=== PATIENT | male | born 1945 | race Caucasian/White ===

== ENCOUNTER 2018-01-08 12:43 | Inpatient (IN) | payer OTHER ==
[~2018-01-08] VITALS: Ht 172.7 cm; Wt 91.8 kg
--- NOTE | 2018-01-08 13:12 | ED CARDIAC/CP/PALPITATIONS ---
History of Present Illness General Chief Complaint: Palpitations Stated Complaint: PALPITATIONS Source: patient Exam Limitations: no limitations Allergies Coded Allergies: codeine (UPSET STOMACH 01/08/18) Triage Note: PT TO ED C/O HEART PALPITATIONS SINCE 0300. C/O FEELING WEAK. DENIES C/P, DIFF BREATHING, SOB, PAIN. DENIES H/O SAME. Triage Nurses Notes Reviewed? yes HPI: Patient is a 72-year-old male with a past medical history of hypertension, hyperlipidemia, diabetes mellitus type 2 is presenting to the emergency department with palpitations. Patient states he woke up at 0300 this morning and he felt palpitations, when he checked his pulse it was irregular and upon checking his blood pressure at home his systolic blood pressure was found to be in the 130s. Patient endorses a history of having for vodka drinks last night at a dinner constitution party. Says that patient has been feeling pretty normal, states he has lightheadedness which is secondary to his chronic vertigo, denies chest pain , palpitations, abdominal pain, constipation, diarrhea, vision changes, sweating. (True Henry MD) Vital Signs & Intake/Output Vital Signs & Intake/Output Vital Signs Date Time Temp Pulse Resp B/P B/P Pulse O2 O2 Flow FiO2 Mean Ox Delivery Rate 01/08 1446 98 14 127/79 01/08 1309 95 Room Air 01/08 1309 114 16 121/82 95 Room Air 01/08 1248 97.0 135 20 132/91 96 Room Air (Moira SOL,Dustin Nagy) Past History Travel History Traveled to [place] past 21 day No Medical History Any Pertinent Medical History? see below for history EENT: allergies Cardiovascular: hypertension, hyperlipidemia Renal: benign prost hyperplasia Endocrine: diabetes Surgical History Surgical History: non-contributory Psychosocial History What is your primary language Hungarian Tobacco Use: Quit >30 days ago ETOH Use: denies use Illicit Drug Use: denies illicit drug use Family History Hx Contributory? No (True Henry MD) Review of Systems Review of Systems Constitutional: Reports: see HPI. (True Henry MD) Physical Exam Physical Exam General Appearance: well developed/nourished, no apparent distress Head: atraumatic Neck: normal inspection, no midline tenderness, thyromegaly not appreciated Respiratory: normal breath sounds, lungs clear Cardiovascular: irregularly irregular, no murmur's appreciated Peripheral Pulses: 4+ dorsalis pedis (R), 4+ dorsalis pedis (L) Gastrointestinal: normal bowel sounds, soft, non-tender Extremities: normal inspection, normal capillary refill Neurologic/Psych: no motor/sensory deficits, awake, alert, oriented x 3, senior linux engineer II- XII nml as tested Skin: normal color, warm/dry Core Measures ACS in differential dx? No CVA/TIA Diagnosis No Sepsis Present: No Sepsis Focused Exam Completed? No CHADS2: CHADS2: Response Value Hypertension History yes 1 Diabetes Mellitus History yes 1 Total 2 (Carl SOL,True) Progress Differential Diagnosis: atrial fibrillation Initial ED EKG: AFIB Prior EKG: changed Comments: Patient is experiencing new onset atrial fibrillation, patient was discussed with marker hand on-call doctor Nusrat at 1404 who recommends bolusing with amiodarone 150 mg for pharmacological conversion to normal sinus rhythm and starting patient on IV heparin drip for transesophageal cardioversion if needed. Fecal Occult is negative in ED. CHADsVASc=3 (Carl SOL,True) Plan of Care: Orders Procedure Date/time Status MAGNESIUM 01/08 1344 Active THYROID STIMULATING HORMONE 01/08 1306 Complete FREE T4 01/08 1306 Complete TROPONIN LEVEL 01/08 1304 Complete PARTIAL THROMBOPLASTIN TIME 01/08 1304 Complete PROTHROMBIN TIME 01/08 1304 Complete COMPREHENSIVE METABOLIC PANEL 01/08 1304 Complete CBC WITHOUT DIFFERENTIAL 01/08 1304 Complete EKG 01/08 1244 Active Current Medications Sig/Kiki Start time Last Medication Dose Stop Time Status Admin Sodium Chloride 1,000 ML BOLUS ONE 01/08 1415 AC 01/08 (Normal Saline 0.9%) 01/08 1514 1446 Laboratory Tests 01/08/18 1306: Anion Gap 12, Estimated GFR 54 L, BUN/Creatinine Ratio 16.2, Glucose 186 H, Calcium 9.4, Total Bilirubin 0.4, AST 23, ALT 39, Alkaline Phosphatase 71, Troponin I < 0.01, Total Protein 6.6, Albumin 4.1, Globulin 2.5, Albumin/ Globulin Ratio 1.6, TSH 4.340 H, Free T4 1.02, PT 11.9, INR 1.09, APTT 33, CBC w Diff NO MAN DIFF REQ, RBC 5.30, MCV 87.8, MCH 28.7, MCHC 32.7 L, RDW 14.1, MPV 7.8, Gran % 62.6, Lymphocytes % 27.7, Monocytes % 5.5, Eosinophils % 3.9, Basophils % 0.3, Absolute Granulocytes 4.4, Absolute Lymphocytes 1.9, Absolute Monocytes 0.4, Absolute Eosinophils 0.3, Absolute Basophils 0 (Dustin Pizarro MD) Departure Departure Disposition: STILL A PATIENT Condition: Stable Clinical Impression Primary Impression: Atrial fibrillation Qualifiers: Atrial fibrillation type: unspecified Qualified Code: I48.91 - Unspecified atrial fibrillation Referrals: Sherri Stevens MD (PCP/Family) Departure Forms: Customer Survey General Discharge Information Admission Note Spoke With: Thien Ellison MD Documentation of Exam: Documentation of any treatments & extenuating circumstances including Concerns Regarding Discharge (functional status, medication knowledge or non-compliance, living conditions, etc.) that warrant an admission rather than observation: Patient has new onset atrial fibrillation will require IV medication for rhythm control Patient requires IV heparin drip to fully anticoagulate for electrocardioversion For new onset atrial fibrillation patient will require continuous cardiac monitoring (True Henry MD) Resident Co-Sign Statement Statement: ED Attending supervision documentation- [X] I saw and evaluated the patient. I have also reviewed all the pertinent lab results and diagnostic results. I agree with the findings and the plan of care as documented in the Resident's documentation. [] I have reviewed the ED Record and agree with the Resident's documentation. [] Additions or exceptions (if any) to the Resident's note and plan are summarized below: [] (Dustin Pizarro MD) Critical Care Note Critical Care Note Critical Care Time: non-applicable (True Henry MD)
[2018-01-08 13:40] LABS: ABSOLUTE BASOPHIL COUNT 0 /CUMM (0.0-0.2); ABSOLUTE EOSINOPHIL COUNT 0.3 /CUMM (0.0-0.7); ABSOLUTE GRANULOCYTE CT 4.4 /CUMM (1.4-6.5); ABSOLUTE LYMPH COUNT 1.9 /CUMM (1.2-3.4); ABSOLUTE MONOCYTE COUNT 0.4 /CUMM (0.10-0.60); BASOPHIL % 0.3 % (0.0-2.0); EOSINOPHIL % 3.9 % (0-5); GRANULOCYTE % 62.6 % (42.2-75.2); HEMATOCRIT 46.5 % (42-52); MEAN CORPUSCULAR HGB 28.7 PG (27.0-31.0); MEAN CORPUSCULAR HGB CONC 32.7 G/DL (33.0-37.0); MEAN CORPUSCULAR VOLUME 87.8 FL (80.0-94.0); MEAN PLATELET VOLUME 7.8 FL (7.4-10.4); RBC DISTRIBUTION WIDTH 14.1 % (11.5-14.5)
[2018-01-08 13:41] LABS: PT 11.9 SEC (9.4-12.5); PTT 33 SEC (25-37)
[2018-01-08 13:53] LABS: PLATELET COUNT 118 /CUMM (130-400)
--- NOTE | 2018-01-08 14:59 | History & Physical ---
Kristin Forde 01/08/18 1459: General Information and HPI History of Present Illness: Fareed Hardin is a 72-year-old male with a PMHx. hypertension, type 2 diabetes x 5 years, hyperlipidemia, obesity, anxiety, depression, obstructive sleep apnea on CPAP, and BPH who presents to the emergency department today with complaints of "palpitations." Patient states that around 3 A.M this morning he woke up with a certain sensation in his chest that felt like palpitations. Patient states it had come on suddenly and has been persisting until now. Patient states he had not experienced any symptom like that previously. Patient states he was drinking vodka last night, about 4 drinks. Patient denied any recent sick contacts, hospitalizations, or history of blood thinner usage. Patient denied experiencing any chest pain, shortness of breath, n/v, lightheadedness, dizziness, diaphoresis, fevers, chills, abdominal pain, weakness, and fatigue. Patient lives at home with his girlfriend. Patient states he is a former smoker who quite more than 50 years ago. Patient drinks alcohol occasionally, usually twice weekly. Patient otherwise denies any illict drug usage. Patient follows Dr. Stevens (PCP), Dr. Connor (Pulmonology), Dr. Wolf (Surgery), and Dr. Hartmann. Patient does not follow a branch specialist. Allergies/Medications Allergies: Coded Allergies: codeine (UPSET STOMACH 01/08/18) Past History Travel History Traveled to [place] past 21 day No Medical History EENT: allergies Cardiovascular: hypertension, hyperlipidemia Renal: benign prost hyperplasia Endocrine: diabetes Surgical History Surgical History: non-contributory Past Family/Social History Psychosocial History Where do you live? Home ETOH Use: denies use Illicit Drug Use: denies illicit drug use Review of Systems Review of Systems Constitutional: Denies: chills, fever, malaise, weakness. Cardiovascular: Reports: palpitations. Denies: chest pain, edema, orthopena, peripheral edema. Respiratory: Denies: cough, orthopnea, short of breath, sputum production. GI: Denies: abdominal pain, constipation, diarrhea, nausea, vomiting. Genitourinary: Denies: dysuria. Musculoskeletal: Denies: joint pain. Skin: Denies: no symptoms. Exam & Diagnostic Data Last 24 Hrs of Vital Signs/I&O Vital Signs Date Time Temp Pulse Resp B/P B/P Pulse O2 O2 Flow FiO2 Mean Ox Delivery Rate 01/08 1642 98.1 100 17 142/82 96 Room Air 01/08 1545 98.3 119 14 137/84 98 Room Air 01/08 1446 98 14 127/79 01/08 1309 95 Room Air 01/08 1309 114 16 121/82 95 Room Air 01/08 1248 97.0 135 20 132/91 96 Room Air Intake & Output 01/08 1600 01/08 0800 01/08 0000 Intake Total Output Total Balance Patient 210 lb Weight Weight Reported by Patient Measurement Method Physical Exam General Appearance Alert, Oriented X3, Cooperative, No Acute Distress Skin No Rashes, No Breakdown Skin Temp/Moisture Exam: Warm/Dry HEENT Atraumatic Neck Supple, No JVD Cardiovascular Normal S1, Normal S2, tachycardia Lungs Clear to Auscultation Abdomen Soft, No Tenderness Neurological Normal Speech, tremor in right hand; trigger finger in left hand Extremities No Edema, Normal Pulses Assessment/Plan Assessment: Fareed Hardin is a 72-year-old male with a PMHx. hypertension, type 2 diabetes x 5 years, hyperlipidemia, obesity, anxiety, depression, obstructive sleep apnea on CPAP, and BPH who presents to the emergency department today with complaints of "palpitations." Patient given NS 1 L bolus, Heparin 25,000 Units IV, and Amiodarone 150 mg IV once in the emergency department. Labs on Admission: WBC 7.0; H/H 15.2/46.5; Na 142; K+ 4.3; BUN 21 Cr. 1.3; TSH 4.34; Free T4 1.02 Patient admitted to the telemetry floor for the following reasons: #Atrial Fibrillation, acute, new-onset - Admitted to the telemetry floor for monitoring of vitals - Patient received Amiodarone bolus 150 mg in the ED; continuing with Amiodarone 360 mg IV Q12h - [id number] of 3; according to recent onset of symptoms will benefit from Amiodarone - ECHO, follow up - Serial EKG and Troponins - Cardiology consulted #Diabetes Mellitus - Insulin Sliding Scale, Novolog Aspart - AccuChecks - Consistent Carb 2 Diet #MIRANDA, likely due to dehydration -Cr 1.3 on admission; baseline 1.0 -follow up BEP in AM Code Status - FC DVT PPx. As Ranked By This Provider Problem List: 1. Atrial fibrillation Qualifiers Atrial fibrillation type: unspecified Qualified Code: I48.91 - Unspecified atrial fibrillation Core Measures/Misc (01/09) Acute Coronary Syndrome ACS Diagnosis: No Congestive Heart Failure Congestive Heart Failure Diagnosis No Cerebrovascular Accident CVA/TIA Diagnosis: No VTE (View Protocol) VTE Risk Factors Acute Medical Illness No Mechanical VTE Prophylaxis d/t N/A MechProphylax Ordered No VTE Pharm Prophylaxis d/t NA PharmProphylax ordered Sepsis (View protocol) Sepsis Present: No If YES complete Sepsis Event Note If YES complete Sepsis Event Note Kamlesh SOL,Rony 01/08/18 1526: General Information and HPI Allergies/Medications Home Med list Cholecalciferol (Vitamin D3) (Vitamin D) 1,000 UNIT TABLET 1 TAB PO DAILY VITAMIN (Reported) Doxazosin Mesylate 8 MG TABLET 1 TAB PO QPM BPH (Reported) Finasteride 5 MG TABLET 1 TAB PO DAILY BPH (Reported) Glimepiride 2 MG TABLET 1 TAB PO BID DIABETES (Reported) Levocetirizine Dihydrochloride 5 MG TABLET 1 TAB PO DAILY ALLERGIES (Reported ) Lisinopril (Prinivil) 10 MG TABLET 1 TAB PO DAILY BP (Reported) Metformin HCl 1,000 MG TABLET 1 TAB PO BID DIABETES (Reported) Omeprazole Magnesium 20 MG CAPSULE.DR 40 MG PO DAILY ACID (Reported) Vitamin E 400 UNIT CAPSULE 800 IU PO DAILY VITAMIN (Reported) Exam & Diagnostic Data Last 24 Hrs of Vital Signs/I&O Vital Signs Date Time Temp Pulse Resp B/P B/P Pulse O2 O2 Flow FiO2 Mean Ox Delivery Rate 01/08 1446 98 14 127/79 01/08 1309 95 Room Air 01/08 1309 114 16 121/82 95 Room Air 01/08 1248 97.0 135 20 132/91 96 Room Air Intake & Output 01/08 1600 01/08 0800 01/08 0000 Intake Total Output Total Balance Patient 95.254 kg Weight Weight Reported by Patient Measurement Method Core Measures/Misc (01/09) Sepsis (View protocol) If YES complete Sepsis Event Note If YES complete Sepsis Event Note Resident Review Statement Resident Statement: examined this patient, discussed with director internal communications, amended to note Other Findings: 72-year-old gentleman with a past medical history of hypertension, hyperlipidemia, diabetes mellitus type 2 is presenting to the emergency department with less than 24 hr hx of palpitation, reported irregular rythm, in the context of EKG findings consistent with atriial fibrillation. Impression * New onset a fib. [id number] score of 3 warranting anticoagulation. Based on onset of symptoms, his afib is new and less than 24hr and therefore can be approached with rythm control. * Hx of chronic diseases: HTN, HLD,diabetes Plan Admit to Tele monitoring for close cardiac monitoring Continue heparin gtts Amiodarone for rythm control Echocardiogram to assess for valvular pathologies Trend tropononin x2 and EKG Obtain Mag levels Keep mag above 2 and KCL above 4 Carbohydrate diet Accucheck tid DVT: Heparin code status:Thien Schultz 01/08/18 1549: Core Measures/Misc (01/09) Sepsis (View protocol) If YES complete Sepsis Event Note If YES complete Sepsis Event Note Attending MD Review Statement Attending Statement Attending MD Statement: examined this patient, discuss w/resident/PA/PLATFORM WORKER, agreed w/resident/PA/PLATFORM WORKER, discussed with family, reviewed EMR data (avail), discussed with nursing, discussed with case mgmt, reviewed images, amended to note Attending Assessment/Plan: Agree with above. Cardiology consulted in ER and recommend amiodarone drip for new onset afib and iv heparin for anticoagulation. Obtain serial cardiac enzymes and rule out SC. ECHO. Telemetry monitoring. Follow cardiology recommendations. Continue home meds. GI/DVT prophylaxis full code
[2018-01-08 16:42] VITALS: BP 142/82
[2018-01-08] MEDS ORDERED: OMEPRAZOLE MAGN20 M1 PO (17:55)
[2018-01-08] MEDS ORDERED: LEVOCETIRIZINE D5 M1 PO (17:56)
[2018-01-08] MEDS ORDERED: PRINIVIL10 M1 PO (17:57)
[2018-01-08] MEDS ORDERED: METFORMIN HCL1000 M1 PO (17:57)
[2018-01-08] MEDS ORDERED: GLIMEPIRIDE2 MG PO (17:58)
[2018-01-08] MEDS ORDERED: FINASTERIDE5 M1 PO (17:59)
[2018-01-08] MEDS ORDERED: VITAMIN E400 UNI5 PO (18:00)
[2018-01-08] MEDS ORDERED: VITAMIN D1000 UNIT PO (18:01)
[2018-01-08] MEDS ORDERED: DOXAZOSIN MESYLA8 M1 PO (18:04)
[2018-01-08 18:48] VITALS: BP 118/68
[2018-01-08 19:09] VITALS: BP 124/78
--- NOTE | 2018-01-08 20:40 | Cons- Cardiology ---
General Information and HPI Consulting Request Date of Consult: 01/08/18 Requested By: Tate Prajapati MD History of Present Illness: 72 year patient with history of MILO using CPAP, diabetes, dyslipidemia, hypertension, no know CAD. Presented to the ED for acute onset palpitations accompanied by lightheadedness and chest pressures at 3 AM last night. Upon arrival to the ED, patient found to be in atrial fibrillation with HR exceeding 130-140 bpm. Allergies/Medications Allergies: Coded Allergies: codeine (UPSET STOMACH 01/08/18) Home Med List: Apixaban (Eliquis) 5 MG TABLET 1 TAB PO BID ATRIAL FIBRILLATION Please take twice daily, once in the morning & once in the evening. Cholecalciferol (Vitamin D3) (Vitamin D) 1,000 UNIT TABLET 1 TAB PO DAILY VITAMIN (Reported) Doxazosin Mesylate 8 MG TABLET 1 TAB PO QPM BPH (Reported) Finasteride 5 MG TABLET 1 TAB PO DAILY BPH (Reported) Flecainide Acetate 50 MG TABLET 2 TAB PO BID HEART RHYTHM Glimepiride 2 MG TABLET 1 TAB PO BID DIABETES (Reported) Levocetirizine Dihydrochloride 5 MG TABLET 1 TAB PO DAILY ALLERGIES (Reported ) Lisinopril (Prinivil) 10 MG TABLET 1 TAB PO DAILY BP (Reported) Metformin HCl 1,000 MG TABLET 1 TAB PO BID DIABETES (Reported) Omeprazole Magnesium 20 MG CAPSULE.DR 40 MG PO DAILY ACID (Reported) Vitamin E 400 UNIT CAPSULE 800 IU PO DAILY VITAMIN (Reported) Past History Travel History Traveled to [place] past 21 day No Medical History Neurological: vertigo, TENSION HEADACHE EENT: cataracts, hearing loss, ALLERGIES (MOLD, DUST) Cardiovascular: hypertension, hyperlipidemia Respiratory: obstructive sleep apnea Gastrointestinal: NONE Hepatic: CHOLECYSTECTOMY Renal: benign prost hyperplasia Musculoskeletal: osteoarthritis Psychiatric: NONE Endocrine: NONE Blood Disorders: NONE Cancer(s): NONE CORE CUTTER/Reproductive: NONE Surgical History Surgical History: cholecystectomy Psychosocial History Where Do You Live? Home Smoking Status: Former Smoker ETOH Use: denies use Illicit Drug Use: denies illicit drug use Exam & Diagnostic Data Vital Signs and I&O Vital Signs Date Time Temp Pulse Resp B/P B/P Pulse O2 O2 Flow FiO2 Mean Ox Delivery Rate 01/08 1909 82 18 124/78 95 Room Air 01/08 1848 98.7 116 17 118/68 95 Room Air 01/08 1756 100 142/82 01/08 1642 98.1 100 17 142/82 96 Room Air 01/08 1545 98.3 119 14 137/84 98 Room Air 01/08 1446 98 14 127/79 01/08 1309 95 Room Air 01/08 1309 114 16 121/82 95 Room Air 01/08 1248 97.0 135 20 132/91 96 Room Air Intake & Output 01/08 1600 01/08 0801/08 0000 01/07 0801/07 0000 Intake Total Output Total Balance Patient 210 lb Weight Weight Reported by Patient Measurement Method Physical Exam: General Appearance Alert, Oriented X3, Cooperative, No Acute Distress HEENT Atraumatic Neck Supple, No JVD, trachea midline Cardiovascular irregular, tachycardia, no audible murmur Lungs Clear to Auscultation, good air entry bilaterally Abdomen Soft, No Tenderness Neurological Normal Speech, tremor in right hand; trigger finger in left hand Extremities No Edema, good capillary refill Labs/Artie Results: Laboratory Tests 01/08 01/08 01/08 1950 1344 1306 Chemistry Sodium (137 - 145 mmol/L) 142 Potassium (3.5 - 5.1 mmol/L) 4.3 Chloride (98 - 107 mmol/L) 108 H Carbon Dioxide (22 - 30 mmol/L) 23 Anion Gap (5 - 16) 12 BUN (9 - 20 mg/dL) 21 H Creatinine (0.7 - 1.2 mg/dL) 1.3 H Estimated GFR (>60 ml/min) 54 L BUN/Creatinine Ratio (7 - 25 %) 16.2 Glucose (65 - 99 mg/dL) 186 H Calcium (8.4 - 10.2 mg/dL) 9.4 Magnesium (1.6 - 2.3 mg/dL) Cancelled 1.5 L Total Bilirubin (0.2 - 1.3 mg/dL) 0.4 AST (17 - 59 U/L) 23 ALT (21 - 72 U/L) 39 Alkaline Phosphatase (< 127 U/L) 71 Troponin I (<0.11 ng/ml) Pending < 0.01 Total Protein (6.3 - 8.2 g/dL) 6.6 Albumin (3.5 - 5.0 g/dL) 4.1 Globulin (1.9 - 4.2 gm/dL) 2.5 Albumin/Globulin Ratio (1.1 - 2.2 %) 1.6 TSH (0.270 - 4.200 uIU/mL) 4.340 H Free T4 (0.78 - 2.44 ng/dL) 1.02 Coagulation PT (9.4 - 12.5 SEC) 11.9 INR (0.90 - 1.17) 1.09 APTT (25 - 37 SEC) Pending 33 Hematology CBC w Diff NO MAN DIFF REQ WBC (4.8 - 10.8 /CUMM) 7.0 RBC (4.70 - 6.10 /CUMM) 5.30 Hgb (14.0 - 18.0 G/DL) 15.2 Hct (42 - 52 %) 46.5 MCV (80.0 - 94.0 FL) 87.8 MCH (27.0 - 31.0 PG) 28.7 MCHC (33.0 - 37.0 G/DL) 32.7 L RDW (11.5 - 14.5 %) 14.1 Plt Count (130 - 400 /CUMM) 118 L MPV (7.4 - 10.4 FL) 7.8 Gran % (42.2 - 75.2 %) 62.6 Lymphocytes % (20.5 - 51.1 %) 27.7 Monocytes % (1.7 - 9.3 %) 5.5 Eosinophils % (0 - 5 %) 3.9 Basophils % (0.0 - 2.0 %) 0.3 Absolute Granulocytes (1.4 - 6.5 /CUMM) 4.4 Absolute Lymphocytes (1.2 - 3.4 /CUMM) 1.9 Absolute Monocytes (0.10 - 0.60 /CUMM) 0.4 Absolute Eosinophils (0.0 - 0.7 /CUMM) 0.3 Absolute Basophils (0.0 - 0.2 /CUMM) 0 /16 16 01/08 UNK UNK UNK Chemistry Fasting Glucose Cancelled Glucose 1/2 Hour Cancelled Glucose 1 Hour Cancelled Assessment/Plan Assessment/Plan New onset atrial fibrillation in patient with no know CAD, valvular disease or cardiomyopathy. CHADSVASC calculated at 3. TSH normal. No precipitating factor identified. Heparin and amiodarone loading and drip initiated (assumed patient has been in afib for < 24 hours). Keep NPO at midnight for possible JOSE G and electrical cardioversion tomorrow) Consult Acknowledgment - Thank you for your consult request.
[2018-01-08 20:58] LABS: PTT 64 SEC (25-37)
[2018-01-08 22:10] VITALS: BP 120/70
[2018-01-09 04:00] VITALS: BP 128/90
[2018-01-09 07:09] VITALS: BP 120/84
--- NOTE | 2018-01-09 07:17 | PN- Housestaff ---
Kristin Forde 01/09/18 0717: Subjective Follow-up For: Atrial Fibrillation Subjective: Afebrile overnight. Patient is seen and examined this morning. Patient denies any chest pain or palpitations this morning. Patient converted to NSR around 7 pm yesterday. Patient still receiving Amiodarone drip, and will be transitioned to PO rhythm control medication. Patient denies any diarrhea, constipation, n/v, dizziness, and lightheadedness. Patient otherwise denied any other complaints. Review of Systems Constitutional: Reports: see HPI. Objective Last 24 Hrs of Vital Signs/I&O Vital Signs Date Time Temp Pulse Resp B/P B/P Pulse O2 O2 Flow FiO2 Mean Ox Delivery Rate 01/09 1122 60 136/76 01/09 0709 97.8 61 12 120/84 96 Room Air 01/09 0500 66 18 126/86 01/09 0400 97.6 62 16 128/90 95 Room Air 01/09 0003 66 18 124/86 01/09 0000 95 Room Air 01/08 2210 98.0 77 16 120/70 95 Room Air 01/08 1909 82 18 124/78 95 Room Air 01/08 1848 98.7 116 17 118/68 95 Room Air 01/08 1756 100 142/82 01/08 1642 98.1 100 17 142/82 96 Room Air 01/08 1545 98.3 119 14 137/84 98 Room Air 01/08 1446 98 14 127/79 01/08 1309 95 Room Air 01/08 1309 114 16 121/82 95 Room Air 01/08 1248 97.0 135 20 132/91 96 Room Air Intake & Output 01/09 1600 01/09 0800 01/09 0000 Intake Total 344 750 Output Total Balance 344 750 Intake, IV 344 250 Intake, Oral 500 Patient 210 lb Weight Weight Reported by Patient Measurement Method Physical Exam General Appearance: Alert, Oriented X3, Cooperative, No Acute Distress Skin: No Rashes HEENT: Atraumatic Neck: Supple, No JVD Cardiovascular: Regular Rate, Normal S1, Normal S2 Lungs: Clear to Auscultation Neurological: Normal Speech Extremities: No Edema, Normal Pulses Assessment/Plan Assessment: Fareed Hardin is a 72-year-old male with a PMHx. hypertension, type 2 diabetes x 5 years, hyperlipidemia, obesity, anxiety, depression, obstructive sleep apnea on CPAP, and BPH who presents to the emergency department today with complaints of "palpitations." Patient given NS 1 L bolus, Heparin 25,000 Units IV, and Amiodarone 150 mg IV once in the emergency department. Labs on Admission: WBC 7.0; H/H 15.2/46.5; Na 142; K+ 4.3; BUN 21 Cr. 1.3; TSH 4.34; Free T4 1.02 Patient admitted to the telemetry floor for the following reasons: #Atrial Fibrillation, acute, new-onset - Admitted to the telemetry floor for monitoring of vitals - Patient received Amiodarone bolus 150 mg in the ED; continuing with Amiodarone 360 mg IV Q12h - Dc'd Amiodarone per Cardiology; started on Flecainide 100 mg BID - DC'd Heparin gtt per Cardiology; started on Eliquis 5 mg BID - [id number] of 3; according to recent onset of symptoms will benefit from Amiodarone - ECHO, follow up - Serial EKG and Troponins - Cardiology consulted #Diabetes Mellitus - Insulin Sliding Scale, Novolog Aspart - AccuChecks - Consistent Carb 2 Diet #MIRANDA, likely due to dehydration -Cr 1.3 on admission; baseline 1.0 -follow up BEP in AM, Cr 1.2 on 01/09 Code Status - FC DVT PPx. Problem List: 1. Atrial fibrillation Pain Ratin Pain Location: na Pain Goal: Remain pain free Pain Plan: na Tomorrow's Labs & Rationales: routine Tate Prajapati MD 01/09/18 1153: Attending MD Review Statement Attending Statement Attending MD Statement: examined this patient, discuss w/resident/PA/AUTO PARTS CLERK, agreed w/resident/PA/AUTO PARTS CLERK, reviewed EMR data (avail) Attending Assessment/Plan: 72M PMH HTN, T2DM admitted with rapid atrial fibrillation, placed on Amiodarone and Heparin drips overnight, now coverted to NSR since last night. Patient is asymptomatic and feels well. Exam benign, labs reviewed. 1. New onset atrial fibrillation with RVR 2. Hypomagnesemia Plan - Continue on telemetry - Continue heparin and amiodarone for now, will speak with cardiology about stopping - Echocardiogram - Continue home medications - Follow cardiology recommendations
[2018-01-09 08:30] LABS: ABSOLUTE BASOPHIL COUNT 0 /CUMM (0.0-0.2); ABSOLUTE EOSINOPHIL COUNT 0.3 /CUMM (0.0-0.7); ABSOLUTE GRANULOCYTE CT 4.1 /CUMM (1.4-6.5); ABSOLUTE MONOCYTE COUNT 0.3 /CUMM (0.10-0.60); BASOPHIL % 0.3 % (0.0-2.0); EOSINOPHIL % 4.2 % (0-5); GRANULOCYTE % 61.8 % (42.2-75.2); MEAN CORPUSCULAR HGB 29.1 PG (27.0-31.0); MEAN CORPUSCULAR HGB CONC 33.2 G/DL (33.0-37.0); MEAN CORPUSCULAR VOLUME 87.4 FL (80.0-94.0); PLATELET COUNT 102 /CUMM (130-400); RBC DISTRIBUTION WIDTH 13.9 % (11.5-14.5); RED BLOOD CELL CT 4.59 /CUMM (4.70-6.10); WHITE BLOOD CELL COUNT 6.7 /CUMM (4.8-10.8)
[2018-01-09 08:38] LABS: PTT > 120 SEC (25-37)
[2018-01-09 08:57] LABS: HEMATOCRIT 40.1 % (42-52)
[2018-01-09] MEDS ORDERED: ELIQUIS5 M1 PO (11:40)
[2018-01-09] MEDS ORDERED: FLECAINIDE ACET50 M1 PO (11:40)
--- NOTE | 2018-01-09 11:42 | Patient Discharge Instructions ---
Discharge Instructions General Discharge Information You were seen/treated for: Atrial Fibrillation You had these procedures: ECG Watch for these problems: If you experience any worsening palpitations, chest pain, shortness of breath please follow up with your PCP. Special Instructions: Please follow up with your PCP within one week. Please follow up with the Sanitation Laborer (Dr. Nusrat parish) within one week. Please follow up with your windlace machine operator to perform Cardiac Stress Testing. Please continue to take your home medications. Diet Continue normal diet: No Recommended Diet: Diabetic Activity Full Activity/No Limits: No Activity Self Limited: Yes Acute Coronary Syndrome Inclusion Criteria At DC or during hospital stay patient has or had the following: ACS DIAGNOSIS No Discharge Core Measures Meds if any: Prescribed or Continued at Discharge Meds if any: NOT Prescribed or Continued at Discharge Congestive Heart Failure Inclusion Criteria At DC or during hospital stay patient has or had the following: CHF DIAGNOSIS No Discharge Core Measures Meds if any: Prescribed or Continued at Discharge Meds if any: NOT Prescribed or Continued at Discharge Cerebrovascular accident Inclusion Criteria At DC or during hospital stay patient has or had the following: CVA/TIA Diagnosis No Discharge Core Measures Meds if any: Prescribed or Continued at Discharge Meds if any: NOT Prescribed or Continued at Discharge Venous thromboembolism Inclusion Criteria VTE Diagnosis No VTE Type NONE VTE Confirmed by (Test) NONE Discharge Core Measures - Per Current guidelines, there needs to be overlap - treatment for the first 5 days of Warfarin therapy. - If discharged on Warfarin prior to 5 days of - overlap therapy, the patient will need to be - assessed for post discharge needs including - *Post discharge parental anticoagulation - *Warfarin and/or parental anticoagulation education - *Follow up date to check INR post discharge At least 5 days overlap therapy as Inpatient No Meds if any: Prescribed or Continued at Discharge Note: Overlap Therapy is Warfarin and Anticoagulant Meds if any: NOT Prescribed or Continued at Discharge
--- NOTE | 2018-01-09 11:48 | Discharge Summary ---
Visit Information Visit Dates Admission Date: 01/08/18 Discharge Date: 01/10/18 Hospital Course Course Attending Physician: Tate Prajapati MD [facility]: Fareed Hardin is a 72-year-old male with a PMHx. hypertension, type 2 diabetes x 5 years, hyperlipidemia, obesity, anxiety, depression, obstructive sleep apnea on CPAP, and BPH who presented to the emergency department with complaints of "palpitations." Patient states that around 3 A.M that morning he woke up with a certain sensation in his chest that felt like palpitations. Patient states it had come on suddenly and has been persisting until now. Patient states he had not experienced any symptom like that previously. Patient states he was drinking vodka last night, about 4 drinks. Patient denied any recent sick contacts, hospitalizations, or history of blood thinner usage. Patient denied experiencing any chest pain, shortness of breath, n/v, lightheadedness, dizziness, diaphoresis, fevers, chills, abdominal pain, weakness, and fatigue. Patient admitted to telemetry and followed for these reasons: 1. Atrial Fibrillation, acute, new-onset - Admitted to the telemetry floor for monitoring of vitals. Patient had a [id number] score of 3 and cardiology was consulted. Patient received Amiodarone bolus 150 mg in the ED and continued with Amiodarone 360 mg IV Q12h maintanence dosage. Patient returned to R around 7 pm the same day. Patient transitioned to Flecainide 100 mg BID starting the next evening. Patient also was on Heparin IV and transitioned to Eliquis 5 mg BID starting the next evening as well. Increased patient's lisinopril to 20 mg daily. Otherwise, we continued his home medications as needed. Patient will be discharged to be followed up closely outpatient with cardiology and his PCP. Allergies: Coded Allergies: codeine (UPSET STOMACH 01/08/18) Significant Procedures: Amiodarone gtt Heparin gtt Disposition Summary Disposition Principal Diagnosis: Atrial Fibrillation, new-onset Additional Diagnosis: Hx. Diabetes Discharge Disposition: home or self care Discharge Instructions General Discharge Information Code Status: Full Code Patient's Diet: Diabetic Patient's Activity: Ad juarez Follow-Up Instructions/Appts: Please follow up with your PCP within one week. Please follow up with the Pathology Transcriptionist (Dr. Nusrat parish) within one week. Please continue to take your home medications. Medications at Discharge Discharge Medications: Stop taking the following medications: Lisinopril (Prinivil) 10 MG TABLET ORAL DAILY Qty = 30 Continue taking these medications: Omeprazole Magnesium (Omeprazole Magnesium) 20 MG CAPSULE.DR 40 Milligram ORAL DAILY Qty = 30 Levocetirizine Dihydrochloride (Levocetirizine Dihydrochloride) 5 MG TABLET 1 Tablet ORAL DAILY Metformin HCl (Metformin HCl) 1,000 MG TABLET 1 Tablet ORAL TWICE DAILY Glimepiride (Glimepiride) 2 MG TABLET 1 Tablet ORAL TWICE DAILY Qty = 60 Finasteride (Finasteride) 5 MG TABLET 1 Tablet ORAL DAILY Qty = 30 Comments: Last Taken:01/10/18 Time:10AM Vitamin E (Vitamin E) 400 UNIT CAPSULE 800 International Unit ORAL DAILY Qty = 60 Cholecalciferol (Vitamin D3) (Vitamin D) 1,000 UNIT TABLET 1 Tablet ORAL DAILY Qty = 30 Doxazosin Mesylate (Doxazosin Mesylate) 8 MG TABLET 1 Tablet ORAL Every night Qty = 30 Comments: Last Taken:01/09/18 Time:10PM Start taking the following new medications: Apixaban (Eliquis) 5 MG TABLET 1 Tablet ORAL TWICE DAILY Qty = 60 No Refills Instructions: Please take twice daily, once in the morning & once in the evening. . Comments: Last Taken:01/10/18 Time:10AM Flecainide Acetate (Flecainide Acetate) 50 MG TABLET 2 Tablet ORAL TWICE DAILY Qty = 120 No Refills Instructions: . Comments: Last Taken:01/10/18 Time:10AM The following medications have been changed: Old: Lisinopril (Prinivil) 20 MG TABLET 1 Tablet ORAL DAILY Qty = 30 New: Lisinopril (Prinivil) 20 MG TABLET 1 Tablet ORAL DAILY Qty = 30 Instructions: . Comments: Last Taken:01/10/18 Time:10AM Copies To: Sherri Stevens MD Attending MD Review Statement Documenting Attending: Tate Prajapati MD
[2018-01-09 14:51] VITALS: BP 120/84
--- NOTE | 2018-01-09 17:16 | PN- Cardiology ---
Subjective Subjective: Patient still in SR, denies chest pains,denies palpitations denies shortness of breath. Objective Vital Signs and I&Os Vital Signs Date Time Temp Pulse Resp B/P B/P Pulse O2 O2 Flow FiO2 Mean Ox Delivery Rate 01/09 1451 98.1 60 18 120/84 96 Room Air 01/09 1122 60 136/76 01/09 0709 97.8 61 12 120/84 96 Room Air 01/09 0500 66 18 126/86 01/09 0400 97.6 62 16 128/90 95 Room Air 01/09 0003 66 18 124/86 01/09 0000 95 Room Air 01/08 2210 98.0 77 16 120/70 95 Room Air 01/08 1909 82 18 124/78 95 Room Air 01/08 1848 98.7 116 17 118/68 95 Room Air 01/08 1756 100 142/82 Intake & Output 01/09 1600 01/09 0800 01/09 0000 01/08 1600 01/08 0800 01/08 0000 Intake Total 344 750 Output Total Balance 344 750 Intake, IV 344 250 Intake, Oral 500 Patient 210 lb 210 lb Weight Weight Reported by Patient Reported by Patient Measurement Method Physical Exam General Appearance: no apparent distress, alert, awake, comfortable Neck: normal inspection, supple, trachea mid line (no JVD) Respiratory: normal breath sounds, no respiratory distress, lungs clear Cardiovascular: regular rate/rhythm, normal peripheral pulses Abdomen: normal bowel sounds, soft, non-tender Extremities: normal inspection, normal capillary refill, no edema Neurologic/Psychiatric: no motor/sensory deficits, alert, oriented x 3 Current Medications: Current Medications Sig/Kiki Start time Last Medication Dose Route Stop Time Status Admin Acetaminophen 500 MG Q6P PRN 01/08 1815 AC PO Acetaminophen 1,000 MG Q6P PRN 01/08 181 AC IV Amiodarone HCl/ 360 MG Q12H 01/08 1645 DC 01/09 Dextrose IV 0003 N/A 1 UNIT Apixaban 5 MG BID 01/09 2100 DC PO Apixaban 5 MG BID 01/09 1345 AC 01/09 PO 1450 Dextrose/Sodium 1,000 ML Q13H 01/09 0600 DC 01/09 Chloride IV 0631 Finasteride 5 MG DAILY 01/09 0900 AC 01/09 PO 1122 Flecainide Acetate 100 MG BID 01/09 2100 AC PO Heparin Sodium 25,000 UNIT Q24H 01/08 2245 DC 01/08 (Porcine) IV 2250 Sodium Chloride 500 ML Insulin Aspart 0 AT BEDTIME 01/09 2100 AC SC Insulin Aspart 0 TIDAC 01/09 1200 AC 01/09 SC 1224 Insulin Aspart 0 TIDAC 01/08 1700 DC AZ 01/09 0555 Insulin Human Regular 0 Q6 01/09 0600 DC 01/09 SC 0630 Lisinopril 10 MG DAILY 01/09 0900 AC 01/09 PO 1122 Magnesium Oxide 400 MG ONE ONE 01/09 1530 DC PO 01/09 1531 Magnesium Oxide 400 MG ONE ONE 01/08 1900 DC 01/08 PO 01/08 1901 1928 Melatonin 0 .STK-MED ONE 01/09 0020 DC PO Melatonin 5 MG ONCE ONE 01/09 0015 DC 01/09 PO 01/09 0016 0019 Omeprazole 20 MG BID 01/08 1945 AC 01/09 PO 1122 Results Last 48 Hrs of Labs/Mics: Laboratory Tests 01/09/18 0710: Anion Gap 9, Estimated GFR 59 L, BUN/Creatinine Ratio 16.7, Magnesium 1.6, APTT > 120 *H 01/09/18 0650: CBC w Diff NO MAN DIFF REQ, RBC 4.59 L, MCV 87.4, MCH 29.1, MCHC 33.2, RDW 13.9 , MPV 8.0, Gran % 61.8, Lymphocytes % 29.1, Monocytes % 4.6, Eosinophils % 4.2, Basophils % 0.3, Absolute Granulocytes 4.1, Absolute Lymphocytes 2.0, Absolute Monocytes 0.3, Absolute Eosinophils 0.3, Absolute Basophils 0 01/08/18 1950: Troponin I < 0.01, APTT 64 H 01/08/18 1344: Magnesium Cancelled 01/08/18 1306: Anion Gap 12, Estimated GFR 54 L, BUN/Creatinine Ratio 16.2, Glucose 186 H, Calcium 9.4, Magnesium 1.5 L, Total Bilirubin 0.4, AST 23, ALT 39, Alkaline Phosphatase 71, Troponin I < 0.01, Total Protein 6.6, Albumin 4.1, Globulin 2.5, Albumin/Globulin Ratio 1.6, TSH 4.340 H, Free T4 1.02, PT 11.9, INR 1.09, APTT 33, CBC w Diff NO MAN DIFF REQ, RBC 5.30, MCV 87.8, MCH 28.7, MCHC 32.7 L, RDW 14.1, MPV 7.8, Gran % 62.6, Lymphocytes % 27.7, Monocytes % 5.5, Eosinophils % 3.9, Basophils % 0.3, Absolute Granulocytes 4.4, Absolute Lymphocytes 1.9, Absolute Monocytes 0.4, Absolute Eosinophils 0.3, Absolute Basophils 0 01/08/18 1000: Glucose 1/2 Hour Cancelled 01/08/18 1000: Glucose 1 Hour Cancelled 01/08/18 1000: Fasting Glucose Cancelled Assessment/Plan Assessment/Plan New onset atrial fibrillation with conversion to SR after amiodarone initiation. Hypertension dyslipidemia. Flecainide and eliquis started. Patient does not want stress testing, i will discuss this further with him at the office. Continue telemetry? Yes
[2018-01-10 00:09] VITALS: BP 138/80
[2018-01-10 06:43] VITALS: BP 168/94
--- NOTE | 2018-01-10 07:39 | PN- Housestaff ---
See Addendum Subjective Follow-up For: Atrial Fibrillation Subjective: Afebrile overnight. Patient is seen and examined this morning. Patient states he is having no active chest pain and palpitations. Patient states he slept well last night and is ready to go home. Patient denies any shortness of breath, n/v, diarrhea, and constipation. Patient's HR has steadily been in the 60s range though patient's blood pressure has been elevated, 168/94 this morning. Review of Systems Constitutional: Reports: see HPI. Objective Last 24 Hrs of Vital Signs/I&O Vital Signs Date Time Temp Pulse Resp B/P B/P Pulse O2 O2 Flow FiO2 Mean Ox Delivery Rate 01/10 0744 158/70 01/10 0643 98.4 68 20 168/94 96 Room Air 01/10 0009 98.6 60 20 138/80 96 Room Air 01/09 1451 98.1 60 18 120/84 96 Room Air 01/09 1122 60 136/76 Intake & Output 01/10 1600 01/10 0800 01/10 0000 Intake Total 360 400 Output Total Balance 360 400 Intake, Oral 360 400 Number 0 Bowel Movements Patient 202 lb Weight Physical Exam General Appearance: Alert, Oriented X3, Cooperative, No Acute Distress Skin: No Rashes, No Breakdown Skin Temp/Moisture Exam: Warm/Dry HEENT: Atraumatic Neck: Supple Cardiovascular: Regular Rate, Normal S1, Normal S2 Lungs: Clear to Auscultation Abdomen: Soft, No Tenderness Neurological: Normal Speech Extremities: No Edema, Normal Pulses Assessment/Plan Assessment: Fareed Hardin is a 72-year-old male with a PMHx. hypertension, type 2 diabetes x 5 years, hyperlipidemia, obesity, anxiety, depression, obstructive sleep apnea on CPAP, and BPH who presents to the emergency department today with complaints of "palpitations." Patient given NS 1 L bolus, Heparin 25,000 Units IV, and Amiodarone 150 mg IV once in the emergency department. Labs on Admission: WBC 7.0; H/H 15.2/46.5; Na 142; K+ 4.3; BUN 21 Cr. 1.3; TSH 4.34; Free T4 1.02 Patient admitted to the telemetry floor for the following reasons: #Atrial Fibrillation, acute, new-onset - Admitted to the telemetry floor for monitoring of vitals - Patient received Amiodarone bolus 150 mg in the ED; continuing with Amiodarone 360 mg IV Q12h - Dc'd Amiodarone per Cardiology; started on Flecainide 100 mg BID - DC'd Heparin gtt per Cardiology; started on Eliquis 5 mg BID - [id number] of 3; according to recent onset of symptoms will benefit from Amiodarone - ECHO, follow up - Serial EKG and Troponins - Cardiology consulted - Blood pressure has been elevated; consider increasing BP medication dosage; increased Lisinopril to 20 mg qd #Diabetes Mellitus - Insulin Sliding Scale, Novolog Aspart - AccuChecks - Consistent Carb 2 Diet #MIRANDA, likely due to dehydration -Cr 1.3 on admission; baseline 1.0 -follow up BEP in AM, Cr 1.2 on 01/09 Code Status - FC DVT PPx. Problem List: 1. Atrial fibrillation Pain Ratin Pain Location: na Pain Goal: Remain pain free Pain Plan: na Tomorrow's Labs & Rationales: routine
[2018-01-10 08:36] LABS: ABSOLUTE BASOPHIL COUNT 0 /CUMM (0.0-0.2); ABSOLUTE EOSINOPHIL COUNT 0.3 /CUMM (0.0-0.7); ABSOLUTE GRANULOCYTE CT 4.6 /CUMM (1.4-6.5); ABSOLUTE LYMPH COUNT 1.8 /CUMM (1.2-3.4); ABSOLUTE MONOCYTE COUNT 0.4 /CUMM (0.10-0.60); BASOPHIL % 0.5 % (0.0-2.0); EOSINOPHIL % 3.7 % (0-5); GRANULOCYTE % 64.9 % (42.2-75.2); HEMATOCRIT 42.6 % (42-52); MEAN CORPUSCULAR HGB 28.9 PG (27.0-31.0); MEAN CORPUSCULAR HGB CONC 32.8 G/DL (33.0-37.0); MEAN PLATELET VOLUME 8.2 FL (7.4-10.4); PLATELET COUNT 85 /CUMM (130-400); RBC DISTRIBUTION WIDTH 14.3 % (11.5-14.5); RED BLOOD CELL CT 4.84 /CUMM (4.70-6.10); WHITE BLOOD CELL COUNT 7.1 /CUMM (4.8-10.8)
[2018-01-10] MEDS ORDERED: PRINIVIL20 M1 PO ×2 (08:51→09:14)
[2018-01-10] MEDS ORDERED: FLECAINIDE ACET50 M1 PO (09:14)
[2018-01-10] MEDS ORDERED: ELIQUIS5 M1 PO (09:14)
[2018-01-10 09:23] VITALS: BP 158/70
--- NOTE | 2018-01-10 10:28 | ECHOCARDIOGRAM REPORT ---
BAHMAN FLOWERS Age: 72 : 1945 Gender: M Exam Date: 01/09/2018 19:02 Exam Location: 1 [address] Ht (in): 68 Wt (lb): 210 BSA: 2.17 BP: 120 / 84 Ordering Physician: Rony Whitlock MD Referring Physician: Tara Silverio MD Technologist: Meme Fernandez [facility] Room Number: [id number] Indications: Afib/flutter Rhythm: Sinus Technical Quality: good FINDINGS Left Ventricle Normal left ventricular size, wall thickness and systolic function with no obvious regional wall motion abnormalities. Normal left ventricular diastolic filling pattern for age. The ejection fraction is visually estimated at 65 %. Right Ventricle The right ventricle is normal in size and function. Right Atrium The right atrium is normal in size. Left Atrium The left atrium is normal in size. The interatrial septum is intact. Mitral Valve The mitral valve is normal in structure and function. There is mild mitral regurgitation. Aortic Valve Structurally normal aortic valve without significant sclerosis or stenosis. There is trace aortic regurgitation. Tricuspid Valve The tricuspid valve is normal in structure and function. There is mild tricuspid regurgitation. RVSP estimated at 30 mmHg. Pulmonic Valve Structurally normal pulmonic valve. There is trace pulmonic regurgitation. Pericardium Normal pericardium without effusion. No pleural effusion. Great Vessels Mild dilatation of the proximal ascending aorta, measured at 40mm. The aortic arch and great vessels are well seen and are normal. CONCLUSIONS Normal left ventricular size, wall thickness and systolic function with no obvious regional wall motion abnormalities. Normal left ventricular diastolic filling pattern for age. The ejection fraction is visually estimated at 65 %. The right ventricle is normal in size and function. The left atrium is normal in size. The interatrial septum is intact. There is mild mitral regurgitation. Structurally normal aortic valve without significant sclerosis or stenosis. There is trace aortic regurgitation. There is mild tricuspid regurgitation. RVSP estimated at 30 mmHg. There is trace pulmonic regurgitation. Normal pericardium without effusion. Mild dilatation of the proximal ascending aorta, measured at 40mm. Tara Silverio M.D. (Electronically Signed) Final Date: 10 January 2018 10:24 MEASUREMENTS (Male / Female) Normal Values 2D ECHO LV Diastolic Diameter PLAX 4.2 cm 4.2 - 5.9 / 3.9 - 5.3 cm LV Systolic Diameter PLAX 2.6 cm 2.1 - 4.0 cm LV Fractional Shortening PLAX 38.1 % 25 - 46 % LV Ejection Fraction 2D Teich 68.7 % IVS Diastolic Thickness 1.3 cm LVPW Diastolic Thickness 1.3 cm LV Relative Wall Thickness 0.6 RV Internal Dim ED PLAX 2.5 cm 1.9 - 3.8 cm LVOT Diameter 2.0 cm Aortic Root Diameter 4.3 cm LA Systolic Diameter LX 4.3 cm 3.0 - 4.0 / 2.7 - 3.8 cm LA Volume 49.0 cm 18 - 58 / 22 - 52 cm Ascending Aorta Diameter 4.0 cm DOPPLER AV Peak Velocity 131.0 cm/s AV Peak Gradient 6.9 mmHg AV Mean Velocity 94.1 cm/s AV Mean Gradient 4.0 mmHg AV Velocity Time Integral 28.1 cm LVOT Peak Velocity 119.0 cm/s LVOT Peak Gradient 5.7 mmHg LVOT Mean Velocity 76.6 cm/s LVOT Mean Gradient 3.0 mmHg LVOT Velocity Time Integral 25.3 cm LVOT Stroke Volume 79.5 cm AV Area Cont Eq vti 2.8 cm AV Area Cont Eq pk 2.9 cm MV Peak Velocity 125.0 cm/s MV Peak Gradient 6.3 mmHg MV Mean Velocity 57.6 cm/s MV Mean Gradient 2.0 mmHg Mitral E Point Velocity 88.4 cm/s Mitral A Point Velocity 68.6 cm/s Mitral E to A Ratio 1.3 MV PHT Velocity 135.0 cm/s MV Deceleration Phelps 859.0 cm/s MV Pressure Half Time 47.1 ms MV Area PHT 4.7 cm MV Deceleration Time 227.0 ms TR Peak Velocity 288.0 cm/s TR Peak Gradient 33.2 mmHg Right Atrial Pressure 5.0 mmHg Pulmonary Artery Systolic Pressure 38.2 mmHg Right Ventricular Systolic Pressure 38.2 mmHg PV Peak Velocity 108.0 cm/s PV Peak Gradient 4.7 mmHg PV Mean Velocity 69.5 cm/s PV Mean Gradient 2.0 mmHg PV Velocity Time Integral 19.8 cm LV E' Lateral Velocity 9.8 cm/s Mitral E to LV E' Lateral Ratio 9.0 LV E' Septal Velocity 9.2 cm/s Mitral E to LV E' Septal Ratio 9.7
== END 2018-01-10 10:52 | DRG 309 ==
LOC: ERH 12:43 → ERHI 14:59 → 1NO 14:59 → EDBEDREQ 15:31 → ENRESERV 15:37 → ENTRNSPT 16:08 → EDTRNSPTSTS 16:16 → EDTRNSPT 16:16 → 1NO 16:31 → CMPTRNSPT 17:15 → 1NO 01-09 07:34 → ENPENDDIS 01-10 09:13 → ENTRNSPT 01-10 10:39 → EDTRNSPTSTS 01-10 10:46 → EDTRNSPT 01-10 10:46 → 1NO 01-10 10:52 → CMPTRNSPT 01-10 10:53
PROVIDERS: Emergency Medicine; Student in an Organized Health Care Education/Training Program
DX: I48.91 Unspecified atrial fibrillation (principal); N17.9 Acute kidney failure, unspecified; I10 Essential (primary) hypertension; E78.5 Hyperlipidemia, unspecified; E11.9 Type 2 diabetes mellitus without complications; Z79.84 Long term (current) use of oral hypoglycemic drugs; G47.33 Obstructive sleep apnea (adult) (pediatric); E66.9 Obesity, unspecified; Z68.31 Body mass index [BMI] 31.0-31.9, adult; F41.9 Anxiety disorder, unspecified; F32.9 Major depressive disorder, single episode, unspecified; N40.0 Benign prostatic hyperplasia without lower urinary tract symptoms; Z72.89 Other problems related to lifestyle; E86.0 Dehydration; E83.42 Hypomagnesemia; Z88.5 Allergy status to narcotic agent; Z90.49 Acquired absence of other specified parts of digestive tract
CPT/HCPCS: 1NSP; 36415; 36592; 82436; 82950; 93005; 93010; 93306; J0131; J0282; J1644; J1815; J7042